=== PATIENT | male | born 1990 | race Caucasian/White ===

== ENCOUNTER 2024-04-14 15:46 | Emergency (ER) | payer BC, SELFPAY ==
[2024-04-14 15:47] VITALS: BP 136/86; PULSE 74; RESP 15; TEMP 36.6; O2SAT 100; BMI 23.7
--- NOTE | 2024-04-14 16:17 | EX.ED.DYSGE1 ---
HPI History of Present Illness Chief Complaint: Rash Informant: patient Onset/Context/Timing Onset: Days Context: Gradual Onset Timing: Continuous Current Severity: Mild Maximum Severity: Mild Narrative Narrative: 33-year-old male developed rash on his right forehead about 4 to 5 days ago. Describes it is mildly painful. Does not itch. No trauma. Does not believe he had any chemicals or ointments on his face. He is never had a rash like this before. Denies other complaints. Prior similar symptoms: No Recent Illness/Hospitalization: No PFSH PFSH Medical History no medical history no medical history Home Medications ?Medication ?Instructions ?Recorded ?Last Taken ?Type famciclovir 500 mg tablet 500 mg PO BID 7 days #14 tabs 04/14/24 Unknown Rx prednisone 20 mg tablet 40 mg (2 x 20 mg) PO DAILY 7 days 04/14/24 Unknown Rx #14 tabs Allergy/AdvReac Type Severity Reaction Status Date / Time No Known Allergies Allergy Verified 04/14/24 15:47 ROS ROS ED ROS Narrative Denies recent illness. Rash right forehead. Constitutional Constitutional ED: Denies chills or fever(s) Eyes Eyes: Denies blurry vision ENT ENT ED: Denies ear pain Cardiovascular Cardiovascular: Denies chest pain Respiratory/Chest Respiratory/Chest: Denies cough or dyspnea Gastrointestinal Gastrointestinal: Denies abdominal pain Genitourinary Genitourinary ED: Denies dysuria or hematuria Musculoskeletal Musculoskeletal: Denies arthralgias Integumentary Denies abscess or Abrasions Neurologic Neurologic: Reports headache(s) Psychiatric Psychiatric: Denies anxiety or depression Endocrine Endocrinology: Denies cold intolerance Hematologic/Lymphatic Hematologic/Lymphatic: Reports none Allergic/Immunologic Allergic/Immunologic ED: Denies mouth swelling, tongue swelling or urticaria EXAM Physical Exam Narrative Exam Narrative: Well-appearing 33-year-old male. Vital signs are stable afebrile. Patient does not look septic or toxic. He is in no distress. Significant other is in the room. H EENT exam pupils round react light. Extra motions are intact. Patient has a rash on his right forehead its vesicular. It is raised. There is no pus. No cellulitis. It involves the right upper forehead and goes a little bit into the scalp. Consistent with shingles. There is involvement of the medial right side of the bridge of his nose. He has no significant watering of his right eye. The lids are not swollen. There is no obvious involvement of the right upper or lower lid at this time. Neck nontender no lymphadenopathy. Lungs clear. Heart regular rhythm. Abdomen soft nontender. Moving all 4 extremities. Nontender no edema. There is no rash on his back, chest, abdomen nor his extremities. Patient is awake and alert. Answer questions following commands. No focal motor deficits. Right eye exam. Pupils round reactive light. Extra motions are intact. Both the upper and lower lids are not swollen. There is no discharge. I placed fluorescein stain in his right eye did a slit-lamp exam I do not see any corneal abrasion or dendritic staining. There is no ulcer. Currently there is no signs of shingles involvement of the right cornea but I explained and that could develop it so I needs to follow-up with the eye doctor. Const Vital Signs: 04/14/24 15:47 Temperature 98 F Temperature Source Oral Pulse Rate 74 Respiratory Rate 15 Blood Pressure 136/86 H Blood Pressure Mean 102 Pulse Ox 100 Oxygen Delivery Method Room Air Positive well nourished and well developed; Negative for cachectic, contractures or unkempt General Appearance ED: well developed and NAD; Negative for unkempt, cachectic, contractures, cyanotic, diaphoretic or pallor Nutritional Appearance: Negative for cachectic HEENT Reports moist mucous membranes HEENT Narrative: Vesicular rash right forehead consistent with shingles. Negative for trauma or tenderness Eyes PERRL and EOMs intact bilaterally General Eye ED: Negative for pale conjunctiva or scleral icterus Neck no lymphadenopathy, supple and no JVD Chest Wall inspection of chest normal and palpation of chest normal Resp normal respiratory effort and clear to auscultation bilaterally Auscultation: Negative for rales, rhonchi, wheezes or diminished lung sounds Cardio regular rate, regular rhythm, S1 normal heart sound, S2 normal heart sound and no murmurs Rate: Negative for bradycardia GI normal to inspection, nondistended, normoactive bowel sounds, non-tender, non-distended and no masses Palpation: soft; Negative for tender, guarding or rebound tenderness present Back/Spine no CVA tenderness Extremity normal to inspection General Extremety ED: Negative for edema or tenderness General Extremity: Negative for edema Neuro oriented x3 and CN's II-XII intact bilaterally Sensorium / Orientation: alert; Negative for orientation impaired, lethargic or stuporous Motor Exam: strength 5/5 throughout Psych mental status grossly normal Appearance: Negative for unkempt Mood & Affect: Negative for depressed, anxious or tearful Skin No no rashes or lesions noted and no wounds Skin Narrative: Right forehead vesicular rash consistent with shingles. General Skin Exam: Negative for jaundice or pallor Lesions: No lesion noted Rashes: No rashes noted Trauma: Negative for abrasion Wounds: Negative for wounds noted MDM MDM MDM Narrative Medical decision making narrative: Right forehead rash involving the bridge of the nose consistent with shingles. Patient be started on Famvir and prednisone. I have ophthalmology paged and can follow-up with them for good evaluation of his left eye to ensure there is no involvement of the cornea. Discharge Plan Triage Chief Complaint: Rash ED Provider: Guille Padron Dx/Rx/DC Orders Clinical Impression: Shingles rash Instructions: ED Shingles (Herpes Zoster) Prescriptions: New famciclovir 500 mg tablet 500 mg PO BID 7 Days Qty: 14 0RF prednisone 20 mg tablet 40 mg PO DAILY 7 Days Qty: 14 0RF Primary Care Provider: Care Physician,No Primary Referrals: Alber Brian MD [Med Staff - Active Staff] - 1 Day (Call their office tomorrow morning. Get into be seen tomorrow. Tell the office staff that you are in the ER. You have shingles. We went make sure it is not your right eye.) Activity Restrictions/Additional Instructions: Call and follow-up with the customer technical services manager tomorrow morning. Call their office at 8 AM. They usually will get you in the same day. Take the prednisone 40 mg a day starting tomorrow. Famvir twice a day. Motrin and Tylenol for pain. Print Language: Slovak Disposition Disposition: Home, Self Care
[2024-04-14] MEDS: Acyclovir 800 MG Tablet PO (17:17)
[2024-04-14] MEDS: Fluorescein 1 MG STRIP 1 STRIP RIGHT EYE (17:17)
[2024-04-14] MEDS: predniSONE 20 MG Tablet 40 MG PO (17:17)
[2024-04-14 17:18] VITALS: BP 136/86; PULSE 74; RESP 15; TEMP 36.6; O2SAT 100
== END 2024-04-14 17:19 | disposition home or self-care (01) ==
PROVIDERS: Emergency Provider Emergency Medicine; Referring Provider Emergency Medicine; Visit Provider Emergency Medicine
DX: B02.9 Zoster without complications (principal)
CPT/HCPCS: 99282